=== PATIENT | male | born 1945 | race Caucasian/White ===

== ENCOUNTER 2020-03-05 20:11 | Observation (INO) ==
[2020-03-05] MEDS ORDERED: Nitroglycerin 0.4 MG TAB.SUBL SL PRN (20:16)
[2020-03-05] MEDS ORDERED: Aspirin 81 MG TAB.CHEW PO ONE (20:16)
[2020-03-05 20:43] LABS: Basophils # 0.1 K/mcL (0.0-0.2); Basophils % 0.9 %; Eosinophils % 11.3 %; Hematocrit 41.1 % (37.5-50.1); Hemoglobin 13.4 g/dL (12.9-16.9); Immature Granulocytes % 0.6 % (0-4); Lymphocytes # 2.1 K/mcL (0.6-4.6); Lymphocytes % 23.2 %; Mean Corpuscular HGB Conc 32.6 g/dL (31.6-35.5); Mean Corpuscular Hemoglobin 27.5 pg (28.0-33.3); Mean Corpuscular Volume 84.2 fL (83.0-100.0); Monocytes # 0.5 K/mcL (0.0-1.3); Monocytes % 5.7 %; Neutrophils # 5.2 K/mcL (1.6-8.9); Platelet Count 144 K/mcL (140-400); Red Blood Count 4.88 M/mcL (4.19-5.50); Red Cell Distribution Width 13.1 % (11.5-14.5); Segmented Neutrophils % 58.3 %
[2020-03-05 20:49] LABS: Prothrombin Time 11.4 Seconds (9.4-12.1)
[2020-03-05 20:51] LABS: Activated Partial Thrombo Time 27.2 Seconds (26.0-36.0)
[2020-03-05 21:04] LABS: BUN/Creatinine Ratio 15 (6-26); Blood Urea Nitrogen 19 mg/dL (8-23); Calcium 9.1 mg/dL (8.6-10.3); Carbon Dioxide 24 mEq/L (23-29); Chloride 102 mEq/L (98-107); Glucose 257 mg/dL (70-105); Osmolality,Calculated 289 (280-300); Sodium 134 mEq/L (136-145); eGFR For African Americans > 60 (> 60); eGFR For Non-African Americans 55 (> 60)
[2020-03-05 21:05] LABS: Troponin I < 0.03 ng/mL (< 0.04)
[2020-03-05 21:27] LABS: Bilirubin,Urine Negative (Negative); Blood,Urine Negative (Negative); Clarity,Urine Clear (Clear); Color,Urine Light-Yellow (Yellow); Glucose,Urine (UA) 500 mg/dL (Normal); Ketones,Urine Negative (Negative); Leukocyte Esterase,Urine Negative (Negative); Nitrite,Urine Negative (Negative); PH,Urine 6.5 pH Units (5.0-8.0); Protein,Urine Negative (Neg-Trace); RBC,Urine 0-3 per hpf (0-3); Urobilinogen,Urine Normal (Normal); WBC,Urine 0-3 per hpf (0-3)
[2020-03-05] MEDS ORDERED: Naloxone 0.4 MG/ML INJ IVP PRN (23:02)
[2020-03-05] MEDS ORDERED: Ondansetron 4 MG/2 ML VIAL IVP PRN (23:02)
[2020-03-05] MEDS ORDERED: Acetaminophen 325 MG TABLET PO PRN (23:02)
[2020-03-05] MEDS ORDERED: Dextrose Gel 15 GM/37.5 ML TUBE PO PRN ×2 (23:06)
[2020-03-05] MEDS ORDERED: *HR* Dextrose 50 % in Water (Vial) 50 ML VIAL IVP PRN (23:06)
[2020-03-05] MEDS ORDERED: D5% in Water 1,000 ML IVC PRN (23:06)
[2020-03-05] MEDS ORDERED: Melatonin 3 MG TABLET PO SCH (23:15)
[2020-03-05] MEDS ORDERED: traZODone 50 MG TABLET PO SCH (23:15)
[2020-03-05] MEDS: Insulin LISPRO 300 UNITS/3 ML VIAL SQ SCH (23:43)
[2020-03-06 05:40] LABS: Hematocrit 38.9 % (37.5-50.1); Hemoglobin 12.9 g/dL (12.9-16.9); Mean Corpuscular HGB Conc 33.2 g/dL (31.6-35.5); Mean Corpuscular Hemoglobin 27.5 pg (28.0-33.3); Mean Corpuscular Volume 82.9 fL (83.0-100.0); Mean Platelet Volume 10.2 fL (9.4-12.4); Platelet Count 148 K/mcL (140-400); Red Blood Count 4.69 M/mcL (4.19-5.50); Red Cell Distribution Width 13.1 % (11.5-14.5); White Blood Count 9.1 K/mcL (4.3-11.1)
[2020-03-06 05:54] LABS: BUN/Creatinine Ratio 15 (6-26); Blood Urea Nitrogen 18 mg/dL (8-23); Calcium 9.2 mg/dL (8.6-10.3); Carbon Dioxide 26 mEq/L (23-29); Chloride 106 mEq/L (98-107); Glucose 111 mg/dL (70-105); Osmolality,Calculated 291 (280-300); Potassium 3.9 mEq/L (3.5-5.1); Sodium 139 mEq/L (136-145); Troponin I < 0.03 ng/mL (< 0.04); eGFR For African Americans > 60 (> 60); eGFR For Non-African Americans 60 (> 60)
[2020-03-06] MEDS: Insulin LISPRO 300 UNITS/3 ML VIAL SQ SCH ×3 (06:14→17:23)
[2020-03-06] MEDS: *HR* Heparin 5,000 UNIT/ML VIAL SQ SCH ×2 (06:28→18:26)
[2020-03-06] MEDS ORDERED: Regadenoson 0.4 MG/5 ML SYRINGE IVP ONE (07:40)
[2020-03-06] MEDS ORDERED: Perflutren Lipid Microsphere 1.3 ML in 0.9 % Sodium Chloride 8.7 ML IVP PRN (07:46)
[2020-03-06] MEDS: Aspirin Enteric Coated 81 MG Tablet PO SCH (09:31)
[2020-03-06] MEDS ORDERED: Fluticasone Propionate Nasal 50 MCG/SPRAY BOTTLE NS PRN (14:58)
[2020-03-06] MEDS: IPRATROPIUM BROMIDE NS SCH ×2 (16:17→20:25)
[2020-03-06] MEDS: Pregabalin 25 MG CAPSULE PO SCH (20:25)
[2020-03-06] MEDS ORDERED: Insulin DETEMIR 100 UNIT/ML X5UNITS SQ SCH (21:00)
[2020-03-06] MEDS ORDERED: Insulin DETEMIR 100 UNIT/ML X5UNITS SQ ONE (22:28)
[2020-03-07] MEDS: Insulin LISPRO 300 UNITS/3 ML VIAL SQ SCH ×2 (00:18→05:34)
[2020-03-07] MEDS: *HR* Heparin 5,000 UNIT/ML VIAL SQ SCH (05:05)
[2020-03-07] MEDS ORDERED: Regadenoson 0.4 MG/5 ML SYRINGE IVP ONE (06:17)
[2020-03-07 06:41] VITALS: BP 161/83
[2020-03-07] MEDS: Pregabalin 25 MG CAPSULE PO SCH (08:55)
[2020-03-07] MEDS: Aspirin Enteric Coated 81 MG Tablet PO SCH (08:55)
[2020-03-07] MEDS: IPRATROPIUM BROMIDE NS SCH (08:56)
[2020-03-07] MEDS ORDERED: Metoprolol XL (24 HR) Succ 50 MG TAB.ER.24H PO SCH (09:00)
[2020-03-07] MEDS ORDERED: amLODIPine 5 MG TABLET PO SCH (09:00)
[2020-03-07] MEDS ORDERED: allopurinoL 300 MG TABLET PO SCH (09:00)
[2020-03-07] MEDS ORDERED: Finasteride 5 MG TABLET PO SCH (09:00)
[2020-03-07] MEDS ORDERED: Cholecalciferol (D-3) 1,000 UNIT (25MCG) TABLET PO SCH (09:00)
[2020-03-07] MEDS ORDERED: Isosorbide MONOnitrate (24 HR) 30 MG TAB.ER.24H PO SCH (09:00)
[2020-03-07] MEDS ORDERED: Loratadine 10 MG TABLET PO SCH (09:00)
== END 2020-03-07 12:33 | disposition home or self-care (01) ==
LOC: 3BNU 20:11 → EMEROOARM 20:11 → 3BNU 22:03
PROVIDERS: ADMIT Internal Medicine; ATTEND Internal Medicine

== ENCOUNTER 2020-12-17 11:55 | Observation (INO) ==
[2020-12-17] MEDS ORDERED: 0.9 % Sodium Chloride 500 ML IVC ONE (12:13)
[2020-12-17 12:43] LABS: Basophils # 0.1 K/mcL (0.0-0.2); Bilirubin,Urine Negative (Negative); Blood,Urine Moderate (Negative); Clarity,Urine Clear (Clear); Color,Urine Light-Yellow (Yellow); Eosinophils # 0.1 K/mcL (0.0-0.6); Eosinophils % 1.4 %; Glucose,Urine (UA) 30 mg/dL (Normal); Hematocrit 41.7 % (37.5-50.1); Hemoglobin 13.6 g/dL (12.9-16.9); Immature Granulocytes % 0.4 % (0-4); Ketones,Urine Trace mg/dL (Negative); Leukocyte Esterase,Urine Negative (Negative); Lymphocytes # 0.8 K/mcL (0.6-4.6); Lymphocytes % 16.5 %; Mean Corpuscular HGB Conc 32.6 g/dL (31.6-35.5); Mean Corpuscular Hemoglobin 27.4 pg (28.0-33.3); Mean Corpuscular Volume 84.1 fL (83.0-100.0); Mean Platelet Volume 10.4 fL (9.4-12.4); Monocytes # 0.7 K/mcL (0.0-1.3); Monocytes % 13.5 %; Mucus,Urine Few per lpf (None-Few); Neutrophils # 3.3 K/mcL (1.6-8.9); Nitrite,Urine Negative (Negative); PH,Urine 6.5 pH Units (5.0-8.0); Platelet Count 135 K/mcL (140-400); Protein,Urine 50 mg/dL (Neg-Trace); RBC,Urine 0-3 per hpf (0-3); Red Blood Count 4.96 M/mcL (4.19-5.50); Red Cell Distribution Width 12.9 % (11.5-14.5); Segmented Neutrophils % 67.2 %; Specific Gravity,Urine 1.018 (1.010-1.025); Squamous Epithelial Cell,Urine Few per hpf (None-Few); Urobilinogen,Urine Normal (Normal); WBC,Urine 0-3 per hpf (0-3); White Blood Count 4.9 K/mcL (4.3-11.1)
[2020-12-17 13:06] LABS: Albumin 3.9 g/dL (3.5-5.7); Albumin/Globulin Ratio 1.3 (1.1-2.2); Bilirubin,Total 0.9 mg/dL (0.3-1.0); Calcium 9.6 mg/dL (8.6-10.3); Globulin 3.1 g/dL (2.4-3.5); Potassium 4.1 mEq/L (3.5-5.1)
[2020-12-17 13:14] LABS: Troponin I 0.03 ng/mL (< 0.04)
[2020-12-17 14:01] LABS: Adenovirus Not Detected (Not Detect); Bordetella Pertussis Not Detected (Not Detect); Chlamydophila pneumoniae Not Detected (Not Detect); Coronavirus 229E Not Detected (Not Detect); Coronavirus HKU1 Not Detected (Not Detect); Coronavirus NL63 Not Detected (Not Detect); Coronavirus OC43 Not Detected (Not Detect); Human Metapneumovirus Not Detected (Not Detect); Human Rhinovirus/Enterovirus Not Detected (Not Detect); Influenza A Subtype 2009 H1 Not Detected (Not Detect); Influenza B Not Detected (Not Detect); Mycoplasma pneumoniae Not Detected (Not Detect); Parainfluenza Virus 1 Not Detected (Not Detect); Parainfluenza Virus 2 Not Detected (Not Detect); Parainfluenza Virus 3 Not Detected (Not Detect); Parainfluenza Virus 4 Not Detected (Not Detect); Respiratory Syncytial Virus Not Detected (Not Detect)
[2020-12-17 14:03] LABS: SARS-CoV-2 DETECTED (Not Detect)
[2020-12-17] MEDS ORDERED: Naloxone 0.4 MG/ML INJ IVP PRN (14:42)
[2020-12-17] MEDS ORDERED: Ondansetron 4 MG/2 ML VIAL IVP PRN (14:42)
[2020-12-17] MEDS ORDERED: 0.9 % Sodium Chloride 1,000 ML IVC SCH (14:45)
[2020-12-17] MEDS ORDERED: Dextrose Gel 15 GM/37.5 ML TUBE PO PRN ×2 (15:10)
[2020-12-17] MEDS ORDERED: *HR* Dextrose 50 % in Water (Vial) 50 ML VIAL IVP PRN (15:10)
[2020-12-17] MEDS ORDERED: D5% in Water 1,000 ML IVC PRN (15:10)
[2020-12-17] MEDS ORDERED: Insulin LISPRO 300 UNITS/3 ML VIAL SUBQ SCH (16:30)
[2020-12-17] MEDS: Insulin LISPRO 300 UNITS/3 ML VIAL SUBQ SCH (17:37)
[2020-12-17] MEDS: Insulin DETEMIR 100 UNIT/ML X5UNITS SUBQ SCH (22:05)
[2020-12-18] MEDS: Insulin LISPRO 300 UNITS/3 ML VIAL SUBQ SCH ×3 (10:45→17:28)
[2020-12-18 11:11] LABS: BUN/Creatinine Ratio 11 (6-26); Blood Urea Nitrogen 14 mg/dL (8-23); Calcium 8.8 mg/dL (8.6-10.3); Carbon Dioxide 25 mEq/L (23-29); Chloride 99 mEq/L (98-107); Creatine Kinase 1831 Units/L (30-223); Glucose 197 mg/dL (70-105); Osmolality,Calculated 278 (280-300); Sodium 131 mEq/L (136-145); eGFR For African Americans > 60 (> 60); eGFR For Non-African Americans 57 (> 60)
[2020-12-18 11:27] LABS: Ferritin 394 ng/mL (20-250)
[2020-12-18 11:46] LABS: C-Reactive Protein 51 mg/L (Less than 10)
[2020-12-18 13:31] LABS: Basophils % 0.7 %; Eosinophils # 0.1 K/mcL (0.0-0.6); Eosinophils % 1.4 %; Hematocrit 40.3 % (37.5-50.1); Hemoglobin 13.4 g/dL (12.9-16.9); Immature Granulocytes % 0.2 % (0-4); Lymphocytes # 0.9 K/mcL (0.6-4.6); Lymphocytes % 21.8 %; Mean Corpuscular HGB Conc 33.3 g/dL (31.6-35.5); Mean Corpuscular Hemoglobin 27.8 pg (28.0-33.3); Mean Corpuscular Volume 83.6 fL (83.0-100.0); Mean Platelet Volume 10.7 fL (9.4-12.4); Monocytes # 0.5 K/mcL (0.0-1.3); Monocytes % 12.2 %; Neutrophils # 2.7 K/mcL (1.6-8.9); Platelet Count 117 K/mcL (140-400); Red Blood Count 4.82 M/mcL (4.19-5.50); Red Cell Distribution Width 12.9 % (11.5-14.5); Segmented Neutrophils % 63.7 %; White Blood Count 4.3 K/mcL (4.3-11.1)
[2020-12-18] MEDS: Metoprolol XL (24 HR) Succ 50 MG TAB.ER.24H PO SCH (17:27)
[2020-12-18] MEDS: amLODIPine 5 MG TABLET PO SCH (17:27)
[2020-12-18] MEDS: Finasteride 5 MG TABLET PO SCH (17:28)
[2020-12-18] MEDS: Aspirin Enteric Coated 81 MG Tablet PO SCH (17:28)
[2020-12-18] MEDS: *HR* Enoxaparin 40 MG/0.4 ML SYRINGE SQ SCH (17:28)
[2020-12-18] MEDS: Loratadine 10 MG TABLET PO SCH (17:28)
[2020-12-18] MEDS: allopurinoL 300 MG TABLET PO SCH (17:28)
[2020-12-18] MEDS ORDERED: traZODone 50 MG TABLET PO SCH (21:00)
[2020-12-18] MEDS ORDERED: Acetaminophen IV 1,000 MG/100 ML BAG IVPB ONE (21:52)
[2020-12-18] MEDS: Insulin DETEMIR 100 UNIT/ML X5UNITS SUBQ SCH (21:55)
[2020-12-18] MEDS: Pregabalin 25 MG CAPSULE PO SCH (21:56)
[2020-12-19] MEDS: amLODIPine 5 MG TABLET PO SCH (10:09)
[2020-12-19] MEDS: allopurinoL 300 MG TABLET PO SCH (10:09)
[2020-12-19] MEDS: Aspirin Enteric Coated 81 MG Tablet PO SCH (10:10)
[2020-12-19] MEDS: Finasteride 5 MG TABLET PO SCH (10:10)
[2020-12-19] MEDS: Metoprolol XL (24 HR) Succ 50 MG TAB.ER.24H PO SCH (10:10)
[2020-12-19] MEDS: Loratadine 10 MG TABLET PO SCH (10:10)
[2020-12-19] MEDS: Pregabalin 25 MG CAPSULE PO SCH (10:10)
[2020-12-19] MEDS: *HR* Enoxaparin 40 MG/0.4 ML SYRINGE SQ SCH (10:11)
[2020-12-19] MEDS: Insulin LISPRO 300 UNITS/3 ML VIAL SUBQ SCH ×2 (10:11→13:41)
[2020-12-19 11:33] VITALS: BP 124/61; PULSE 67; TEMP 99.2; O2SAT 94
[2020-12-19] MEDS ORDERED: Insulin DETEMIR 100 UNIT/ML X5UNITS SUBQ SCH (21:00)
== END 2020-12-19 14:29 | disposition home health service (06) ==
LOC: 3ANU 11:55 → EMEROOARM 11:55 → SUATTDRO 14:52 → 3ANU 16:30
PROVIDERS: ADMIT Internal Medicine; ATTEND Internal Medicine

== ENCOUNTER 2020-12-21 13:24 | Inpatient (IN) ==
[2020-12-21] MEDS ORDERED: 0.9 % Sodium Chloride 1,000 ML IVC ONE (13:49)
[2020-12-21 14:26] LABS: Hematocrit 37.1 % (37.5-50.1); Hemoglobin 12.2 g/dL (12.9-16.9); Mean Corpuscular HGB Conc 32.9 g/dL (31.6-35.5); Mean Corpuscular Hemoglobin 27.5 pg (28.0-33.3); Mean Corpuscular Volume 83.6 fL (83.0-100.0); Mean Platelet Volume 10.9 fL (9.4-12.4); Red Blood Count 4.44 M/mcL (4.19-5.50); Red Cell Distribution Width 12.8 % (11.5-14.5); White Blood Count 3.1 K/mcL (4.3-11.1)
[2020-12-21 14:34] LABS: Prothrombin Time 11.6 Seconds (9.4-12.1)
[2020-12-21 14:37] LABS: Activated Partial Thrombo Time 28.7 Seconds (26.0-36.0)
[2020-12-21 14:41] LABS: Albumin 3.2 g/dL (3.5-5.7); Albumin/Globulin Ratio 1.1 (1.1-2.2); Bilirubin,Direct 0.3 mg/dL (0.0-0.2); Bilirubin,Indirect 0.7 mg/dL (0.0-1.0); Calcium 8.5 mg/dL (8.6-10.3); Globulin 2.9 g/dL (2.4-3.5); Magnesium 1.6 mg/dL (1.6-2.6); Phosphorous 3.1 mg/dL (2.7-4.5); Potassium 4.3 mEq/L (3.5-5.1); Total Protein 6.1 g/dL (6.4-8.9); Troponin I 0.03 ng/mL (< 0.04)
[2020-12-21 15:47] LABS: Platelet Count 85 K/mcL (140-400)
[2020-12-21 16:07] LABS: Lymphocytes # 0.3 K/mcL (0.6-4.6); Monocytes # 0.1 K/mcL (0.0-1.3); Neutrophils # 2.7 K/mcL (1.6-8.9); Reactive Lymphocytes Present (Not Present)
[2020-12-21 16:08] LABS: Platelet Estimate Slight Decrease (Normal)
[2020-12-21] MEDS ORDERED: Dextrose Gel 15 GM/37.5 ML TUBE PO PRN ×2 (16:56)
[2020-12-21] MEDS ORDERED: Naloxone 0.4 MG/ML INJ IVP PRN (16:56)
[2020-12-21] MEDS ORDERED: *HR* Dextrose 50 % in Water (Vial) 50 ML VIAL IVP PRN (16:56)
[2020-12-21] MEDS ORDERED: D5% in Water 1,000 ML IVC PRN (16:56)
[2020-12-21] MEDS ORDERED: Benzonatate 100 MG CAPSULE PO PRN (17:19)
[2020-12-21] MEDS ORDERED: Remdesivir 200 MG in 0.9 % Sodium Chloride 100 ML IVPB ONE (17:56)
[2020-12-21 19:30] LABS: Basophils % 0.3 %; Hemoglobin 11.7 g/dL (12.9-16.9)
[2020-12-21 19:32] LABS: Hematocrit 35.6 % (37.5-50.1); Immature Granulocytes % 0.3 % (0-4); Immature Platelets 5.8 % (1.1-6.1); Lymphocytes # 0.6 K/mcL (0.6-4.6); Lymphocytes % 15.5 %; Mean Corpuscular HGB Conc 32.9 g/dL (31.6-35.5); Mean Corpuscular Hemoglobin 27.6 pg (28.0-33.3); Mean Platelet Volume 10.9 fL (9.4-12.4); Monocytes # 0.2 K/mcL (0.0-1.3); Neutrophils # 3.2 K/mcL (1.6-8.9); Red Blood Count 4.24 M/mcL (4.19-5.50); Red Cell Distribution Width 12.9 % (11.5-14.5); Segmented Neutrophils % 78.9 %
[2020-12-21 20:06] LABS: Troponin I 0.03 ng/mL (< 0.04)
[2020-12-21 20:30] LABS: Platelet Count 88 K/mcL (140-400)
[2020-12-21 20:32] LABS: Platelet Estimate Marked Decrease (Normal)
[2020-12-21 20:40] LABS: Estimated Average Glucose 197 mg/dl; Hemoglobin A1C 8.5 %
[2020-12-21 20:42] LABS: Calcium 8.1 mg/dL (8.6-10.3); Potassium 4.7 mEq/L (3.5-5.1)
[2020-12-21] MEDS ORDERED: 0.9 % Sodium Chloride 1,000 ML IVC SCH (21:00)
[2020-12-21 21:30] LABS: Bilirubin,Urine Negative (Negative); Blood,Urine Negative (Negative); Clarity,Urine Clear (Clear); Color,Urine Yellow (Yellow); Glucose,Urine (UA) Normal (Normal); Hyaline Casts,Urine Few per lpf (None Seen); Ketones,Urine Negative (Negative); Leukocyte Esterase,Urine Negative (Negative); Nitrite,Urine Negative (Negative); PH,Urine 5.5 pH Units (5.0-8.0); Protein,Urine 30 mg/dL (Neg-Trace); RBC,Urine 0-3 per hpf (0-3); Specific Gravity,Urine 1.019 (1.010-1.025); Squamous Epithelial Cell,Urine Few per hpf (None-Few); Urobilinogen,Urine Normal (Normal); WBC,Urine 0-3 per hpf (0-3)
[2020-12-21] MEDS: Insulin LISPRO 300 UNITS/3 ML VIAL SUBQ SCH (21:31)
[2020-12-21] MEDS: Ipratropium 1 PUFF INHALER IH SCH (21:34)
[2020-12-21] MEDS: Azithromycin 250 MG TABLET PO SCH (21:48)
[2020-12-21] MEDS: Piperacillin/Tazobactam 3.375 GM in 0.9 % Sodium Chloride Mini Bag 100 ML IVPB SCH (21:49)
[2020-12-22] MEDS: Ipratropium 1 PUFF INHALER IH SCH ×6 (00:35→20:34)
[2020-12-22] MEDS: Piperacillin/Tazobactam 3.375 GM in 0.9 % Sodium Chloride Mini Bag 100 ML IVPB SCH ×3 (05:23→22:01)
[2020-12-22] MEDS: *HR* Enoxaparin 40 MG/0.4 ML SYRINGE SQ SCH (05:24)
[2020-12-22 06:11] LABS: Immature Granulocytes % 0.6 % (0-4); Monocytes % 3.4 %
[2020-12-22 06:13] LABS: Basophils % 0.3 %; Hematocrit 34.8 % (37.5-50.1); Hemoglobin 11.9 g/dL (12.9-16.9); Immature Platelets 5.2 % (1.1-6.1); Lymphocytes # 0.4 K/mcL (0.6-4.6); Lymphocytes % 11.7 %; Mean Corpuscular HGB Conc 34.2 g/dL (31.6-35.5); Mean Corpuscular Hemoglobin 28.5 pg (28.0-33.3); Mean Corpuscular Volume 83.3 fL (83.0-100.0); Mean Platelet Volume 11.2 fL (9.4-12.4); Monocytes # 0.1 K/mcL (0.0-1.3); Red Blood Count 4.18 M/mcL (4.19-5.50); White Blood Count 3.5 K/mcL (4.3-11.1)
[2020-12-22 06:15] LABS: Neutrophils # 2.9 K/mcL (1.6-8.9); Platelet Count 86 K/mcL (140-400)
[2020-12-22 06:30] LABS: Albumin 3.1 g/dL (3.5-5.7); Albumin/Globulin Ratio 1.2 (1.1-2.2); Bilirubin,Direct 0.2 mg/dL (0.0-0.2); Bilirubin,Indirect 0.6 mg/dL (0.0-1.0); Bilirubin,Total 0.8 mg/dL (0.3-1.0); Globulin 2.6 g/dL (2.4-3.5); Potassium 4.8 mEq/L (3.5-5.1); Total Protein 5.7 g/dL (6.4-8.9)
[2020-12-22] MEDS: Chlorhexidine Rinse 15 ML MOUTHWASH MM SCH ×2 (09:06→21:58)
[2020-12-22] MEDS: Cholecalciferol (D-3) 1,000 UNIT (25MCG) TABLET PO SCH (09:07)
[2020-12-22] MEDS: Insulin LISPRO 300 UNITS/3 ML VIAL SUBQ SCH ×3 (09:13→17:58)
[2020-12-22] MEDS ORDERED: Fluticasone Propionate Nasal 50 MCG/SPRAY BOTTLE NS PRN (16:25)
[2020-12-22] MEDS ORDERED: Nitroglycerin 0.4 MG TAB.SUBL SL PRN (16:25)
[2020-12-22] MEDS ORDERED: Chloraseptic Spray 177 ML BOTTLE MM PRN (16:27)
[2020-12-22] MEDS ORDERED: Saliva Stimulant 44.3ml BOTTLE PO PRN (16:27)
[2020-12-22] MEDS: Acetaminophen 325 MG TABLET PO PRN (17:12)
[2020-12-22] MEDS: Saline Nasal Spray 44 ML BOTTLE NS SCH ×2 (18:00→21:58)
[2020-12-22] MEDS: Artificial Tears SOLN 15 ML BOTTLE BOTH EYES SCH (18:02)
[2020-12-22] MEDS ORDERED: Insulin DETEMIR 100 UNIT/ML X5UNITS SUBQ SCH (21:00)
[2020-12-22] MEDS: Remdesivir 100 MG in 0.9 % Sodium Chloride 100 ML IVPB SCH (21:55)
[2020-12-22] MEDS: Lactobacillus 1 EACH CAP.SPRINK PO SCH (21:58)
[2020-12-22] MEDS: Pregabalin 25 MG CAPSULE PO SCH (21:59)
[2020-12-22] MEDS: Melatonin 3 MG TABLET PO SCH (21:59)
[2020-12-22] MEDS: traZODone 50 MG TABLET PO SCH (22:00)
[2020-12-22] MEDS: Azithromycin 250 MG TABLET PO SCH (22:00)
[2020-12-23] MEDS: Ipratropium 1 PUFF INHALER IH SCH ×7 (00:35→23:53)
[2020-12-23] MEDS: Insulin LISPRO 300 UNITS/3 ML VIAL SUBQ SCH ×8 (01:15→22:13)
[2020-12-23] MEDS: Saline Nasal Spray 44 ML BOTTLE NS SCH ×6 (01:32→21:10)
[2020-12-23] MEDS: Piperacillin/Tazobactam 3.375 GM in 0.9 % Sodium Chloride Mini Bag 100 ML IVPB SCH ×3 (06:36→22:14)
[2020-12-23] MEDS: *HR* Enoxaparin 40 MG/0.4 ML SYRINGE SQ SCH (06:36)
[2020-12-23] MEDS: amLODIPine 5 MG TABLET PO SCH (08:08)
[2020-12-23] MEDS: Isosorbide MONOnitrate (24 HR) 30 MG TAB.ER.24H PO SCH (08:09)
[2020-12-23] MEDS: Metoprolol XL (24 HR) Succ 50 MG TAB.ER.24H PO SCH (08:09)
[2020-12-23] MEDS: Multivit/Ca/Min/Fe/FA 1 TAB TABLET PO SCH (08:09)
[2020-12-23] MEDS: Finasteride 5 MG TABLET PO SCH (08:09)
[2020-12-23] MEDS: Cholecalciferol (D-3) 1,000 UNIT (25MCG) TABLET PO SCH (08:10)
[2020-12-23] MEDS: Pregabalin 25 MG CAPSULE PO SCH ×2 (08:10→21:06)
[2020-12-23] MEDS: Aspirin Enteric Coated 81 MG Tablet PO SCH (08:10)
[2020-12-23] MEDS: Chlorhexidine Rinse 15 ML MOUTHWASH MM SCH ×2 (08:10→21:10)
[2020-12-23] MEDS: Lactobacillus 1 EACH CAP.SPRINK PO SCH ×2 (08:10→21:06)
[2020-12-23] MEDS: Loratadine 10 MG TABLET PO SCH (08:10)
[2020-12-23 08:12] LABS: Alanine Aminotransferase 16 Units/L (7-52); Albumin/Globulin Ratio 1.2 (1.1-2.2); Alkaline Phosphatase 67 Units/L (34-104); Aspartate Amino Transferase 25 Units/L (13-39); Bilirubin,Total 0.6 mg/dL (0.3-1.0); Blood Urea Nitrogen 28 mg/dL (8-23); Calcium 8.5 mg/dL (8.6-10.3); Carbon Dioxide 23 mEq/L (23-29); Chloride 101 mEq/L (98-107); Globulin 2.6 g/dL (2.4-3.5); Glucose 407 mg/dL (70-105); Lactate Dehydrogenase 236 Units/L (140-271); Osmolality,Calculated 299 (280-300); Phosphorous 2.8 mg/dL (2.7-4.5); Potassium 4.8 mEq/L (3.5-5.1); Sodium 133 mEq/L (136-145); Total Protein 5.6 g/dL (6.4-8.9)
[2020-12-23 08:20] LABS: Ferritin 978 ng/mL (20-250)
[2020-12-23 08:29] LABS: Basophils % 0.1 %; Hematocrit 37.4 % (37.5-50.1); Hemoglobin 12.3 g/dL (12.9-16.9); Immature Granulocytes % 0.7 % (0-4); Lymphocytes # 0.6 K/mcL (0.6-4.6); Mean Corpuscular HGB Conc 32.9 g/dL (31.6-35.5); Mean Corpuscular Hemoglobin 27.3 pg (28.0-33.3); Mean Corpuscular Volume 82.9 fL (83.0-100.0); Mean Platelet Volume 10.5 fL (9.4-12.4); Monocytes # 0.3 K/mcL (0.0-1.3); Monocytes % 3.8 %; Neutrophils # 6.3 K/mcL (1.6-8.9); Platelet Count 119 K/mcL (140-400); Red Blood Count 4.51 M/mcL (4.19-5.50); Segmented Neutrophils % 87.4 %
[2020-12-23 08:31] LABS: White Blood Count 7.2 K/mcL (4.3-11.1)
[2020-12-23 08:40] LABS: BUN/Creatinine Ratio 20 (6-26); C-Reactive Protein 134 mg/L (Less than 10); eGFR For African Americans > 60 (> 60); eGFR For Non-African Americans 51 (> 60)
[2020-12-23] MEDS ORDERED: Cholecalciferol (D-3) 1,000 UNIT (25MCG) TABLET PO SCH (09:00)
[2020-12-23] MEDS ORDERED: Calcium Gluconate 1gm/50mL 1 GM/50 ML BAG IVPB SCH (13:00)
[2020-12-23] MEDS: Artificial Tears SOLN 15 ML BOTTLE BOTH EYES SCH ×2 (13:31→21:11)
[2020-12-23] MEDS: Furosemide 20 MG/2 ML VIAL IVP SCH (14:25)
[2020-12-23] MEDS ORDERED: Insulin DETEMIR 100 UNIT/ML X5UNITS SUBQ ONE (14:27)
[2020-12-23] MEDS: Remdesivir 100 MG in 0.9 % Sodium Chloride 100 ML IVPB SCH (21:00)
[2020-12-23] MEDS: traZODone 50 MG TABLET PO SCH (21:06)
[2020-12-23] MEDS: Azithromycin 250 MG TABLET PO SCH (21:06)
[2020-12-23] MEDS: Sennosides/Docusate Sodium TABLET PO SCH (21:06)
[2020-12-23] MEDS: Melatonin 3 MG TABLET PO SCH (21:06)
[2020-12-23] MEDS: Insulin DETEMIR 100 UNIT/ML X5UNITS SUBQ SCH (22:15)
[2020-12-24] MEDS: Saline Nasal Spray 44 ML BOTTLE NS SCH ×6 (00:38→20:07)
[2020-12-24] MEDS: Ipratropium 1 PUFF INHALER IH SCH ×6 (03:02→23:10)
[2020-12-24] MEDS: Piperacillin/Tazobactam 3.375 GM in 0.9 % Sodium Chloride Mini Bag 100 ML IVPB SCH ×3 (05:33→22:50)
[2020-12-24] MEDS: *HR* Enoxaparin 40 MG/0.4 ML SYRINGE SQ SCH (05:34)
[2020-12-24 06:57] LABS: Basophils % 0.1 %; Hemoglobin 12.4 g/dL (12.9-16.9); Immature Granulocytes % 1.1 % (0-4); Immature Platelets 3.9 % (1.1-6.1); Lymphocytes # 0.7 K/mcL (0.6-4.6); Lymphocytes % 7.5 %; Mean Corpuscular HGB Conc 33.5 g/dL (31.6-35.5); Mean Corpuscular Hemoglobin 27.9 pg (28.0-33.3); Mean Corpuscular Volume 83.1 fL (83.0-100.0); Mean Platelet Volume 10.7 fL (9.4-12.4); Monocytes # 0.5 K/mcL (0.0-1.3); Neutrophils # 7.8 K/mcL (1.6-8.9); Platelet Count 149 K/mcL (140-400); Red Blood Count 4.45 M/mcL (4.19-5.50); Segmented Neutrophils % 86.3 %
[2020-12-24 07:18] LABS: Alanine Aminotransferase 15 Units/L (7-52); Albumin/Globulin Ratio 1.1 (1.1-2.2); Alkaline Phosphatase 65 Units/L (34-104); Aspartate Amino Transferase 23 Units/L (13-39); BUN/Creatinine Ratio 25 (6-26); Bilirubin,Total 0.6 mg/dL (0.3-1.0); Blood Urea Nitrogen 32 mg/dL (8-23); Calcium 8.9 mg/dL (8.6-10.3); Carbon Dioxide 26 mEq/L (23-29); Chloride 102 mEq/L (98-107); Globulin 2.7 g/dL (2.4-3.5); Glucose 215 mg/dL (70-105); Lactate Dehydrogenase 246 Units/L (140-271); Osmolality,Calculated 293 (280-300); Phosphorous 2.9 mg/dL (2.7-4.5); Potassium 4.1 mEq/L (3.5-5.1); Sodium 135 mEq/L (136-145); Total Protein 5.7 g/dL (6.4-8.9); eGFR For African Americans > 60 (> 60); eGFR For Non-African Americans 54 (> 60)
[2020-12-24 07:33] LABS: Ferritin 862 ng/mL (20-250)
[2020-12-24] MEDS: Artificial Tears SOLN 15 ML BOTTLE BOTH EYES SCH ×2 (08:03→20:07)
[2020-12-24] MEDS: Chlorhexidine Rinse 15 ML MOUTHWASH MM SCH ×2 (08:03→19:56)
[2020-12-24] MEDS: Insulin LISPRO 300 UNITS/3 ML VIAL SUBQ SCH ×7 (08:03→21:12)
[2020-12-24] MEDS: Aspirin Enteric Coated 81 MG Tablet PO SCH (08:03)
[2020-12-24] MEDS: Insulin DETEMIR 100 UNIT/ML X5UNITS SUBQ SCH ×2 (08:04→21:11)
[2020-12-24] MEDS: Multivit/Ca/Min/Fe/FA 1 TAB TABLET PO SCH (08:04)
[2020-12-24] MEDS: Furosemide 20 MG/2 ML VIAL IVP SCH (08:04)
[2020-12-24] MEDS: Finasteride 5 MG TABLET PO SCH (08:04)
[2020-12-24] MEDS: Sennosides/Docusate Sodium TABLET PO SCH ×2 (08:04→19:51)
[2020-12-24] MEDS: Loratadine 10 MG TABLET PO SCH (08:04)
[2020-12-24] MEDS: Lactobacillus 1 EACH CAP.SPRINK PO SCH ×2 (08:04→19:53)
[2020-12-24] MEDS: amLODIPine 5 MG TABLET PO SCH (08:04)
[2020-12-24] MEDS: Isosorbide MONOnitrate (24 HR) 30 MG TAB.ER.24H PO SCH (08:04)
[2020-12-24] MEDS: Pregabalin 25 MG CAPSULE PO SCH ×2 (08:04→19:53)
[2020-12-24] MEDS: Cholecalciferol (D-3) 1,000 UNIT (25MCG) TABLET PO SCH (08:05)
[2020-12-24] MEDS: Metoprolol XL (24 HR) Succ 50 MG TAB.ER.24H PO SCH (08:05)
[2020-12-24 10:17] LABS: C-Reactive Protein 77 mg/L (Less than 10)
[2020-12-24] MEDS: Remdesivir 100 MG in 0.9 % Sodium Chloride 100 ML IVPB SCH (17:08)
[2020-12-24] MEDS: Azithromycin 250 MG TABLET PO SCH (19:51)
[2020-12-24] MEDS: Melatonin 3 MG TABLET PO SCH (19:54)
[2020-12-24] MEDS: traZODone 50 MG TABLET PO SCH (19:56)
[2020-12-25 01:26] LABS: Basophils % 0.3 %; Hematocrit 38.9 % (37.5-50.1); Hemoglobin 12.8 g/dL (12.9-16.9); Immature Granulocytes % 1.1 % (0-4); Lymphocytes # 0.7 K/mcL (0.6-4.6); Lymphocytes % 8.3 %; Mean Corpuscular HGB Conc 32.9 g/dL (31.6-35.5); Mean Corpuscular Hemoglobin 27.2 pg (28.0-33.3); Mean Corpuscular Volume 82.8 fL (83.0-100.0); Mean Platelet Volume 10.3 fL (9.4-12.4); Monocytes # 0.5 K/mcL (0.0-1.3); Monocytes % 5.7 %; Neutrophils # 6.7 K/mcL (1.6-8.9); Platelet Count 143 K/mcL (140-400); Red Cell Distribution Width 12.9 % (11.5-14.5); Segmented Neutrophils % 84.6 %; White Blood Count 7.9 K/mcL (4.3-11.1)
[2020-12-25 02:00] LABS: Alanine Aminotransferase 19 Units/L (7-52); Alkaline Phosphatase 67 Units/L (34-104); Aspartate Amino Transferase 34 Units/L (13-39); BUN/Creatinine Ratio 29 (6-26); Bilirubin,Total 0.6 mg/dL (0.3-1.0); Blood Urea Nitrogen 34 mg/dL (8-23); C-Reactive Protein 75 mg/L (Less than 10); Calcium 8.4 mg/dL (8.6-10.3); Carbon Dioxide 21 mEq/L (23-29); Chloride 102 mEq/L (98-107); Globulin 2.9 g/dL (2.4-3.5); Glucose 197 mg/dL (70-105); Lactate Dehydrogenase 325 Units/L (140-271); Magnesium 1.9 mg/dL (1.6-2.6); Osmolality,Calculated 289 (280-300); Phosphorous 2.7 mg/dL (2.7-4.5); Sodium 133 mEq/L (136-145); Total Protein 5.9 g/dL (6.4-8.9); eGFR For African Americans > 60 (> 60); eGFR For Non-African Americans 60 (> 60)
[2020-12-25 02:05] LABS: Ferritin 722 ng/mL (20-250)
[2020-12-25] MEDS: Saline Nasal Spray 44 ML BOTTLE NS SCH ×6 (03:15→19:55)
[2020-12-25] MEDS: Ipratropium 1 PUFF INHALER IH SCH ×5 (03:21→19:51)
[2020-12-25] MEDS: Piperacillin/Tazobactam 3.375 GM in 0.9 % Sodium Chloride Mini Bag 100 ML IVPB SCH ×3 (05:03→20:56)
[2020-12-25] MEDS: *HR* Enoxaparin 40 MG/0.4 ML SYRINGE SQ SCH (05:04)
[2020-12-25] MEDS: Multivit/Ca/Min/Fe/FA 1 TAB TABLET PO SCH (08:57)
[2020-12-25] MEDS: Sennosides/Docusate Sodium TABLET PO SCH ×2 (08:57→19:49)
[2020-12-25] MEDS: Lactobacillus 1 EACH CAP.SPRINK PO SCH ×2 (08:58→19:48)
[2020-12-25] MEDS: Isosorbide MONOnitrate (24 HR) 30 MG TAB.ER.24H PO SCH (08:58)
[2020-12-25] MEDS: Finasteride 5 MG TABLET PO SCH (08:58)
[2020-12-25] MEDS: Loratadine 10 MG TABLET PO SCH (08:58)
[2020-12-25] MEDS: Chlorhexidine Rinse 15 ML MOUTHWASH MM SCH ×2 (08:59→19:51)
[2020-12-25] MEDS: Aspirin Enteric Coated 81 MG Tablet PO SCH (08:59)
[2020-12-25] MEDS: Furosemide 20 MG/2 ML VIAL IVP SCH (08:59)
[2020-12-25] MEDS: Pregabalin 25 MG CAPSULE PO SCH ×2 (08:59→19:49)
[2020-12-25] MEDS: Cholecalciferol (D-3) 1,000 UNIT (25MCG) TABLET PO SCH (08:59)
[2020-12-25] MEDS: amLODIPine 5 MG TABLET PO SCH (08:59)
[2020-12-25] MEDS: Metoprolol XL (24 HR) Succ 50 MG TAB.ER.24H PO SCH (08:59)
[2020-12-25] MEDS: Insulin DETEMIR 100 UNIT/ML X5UNITS SUBQ SCH ×2 (09:00→20:56)
[2020-12-25] MEDS: Insulin LISPRO 300 UNITS/3 ML VIAL SUBQ SCH ×7 (09:01→21:06)
[2020-12-25] MEDS: Calcium Gluconate 1gm/50mL 1 GM/50 ML BAG IVPB SCH ×2 (09:01→11:43)
[2020-12-25] MEDS: Artificial Tears SOLN 15 ML BOTTLE BOTH EYES SCH ×2 (09:04→19:55)
[2020-12-25] MEDS: Remdesivir 100 MG in 0.9 % Sodium Chloride 100 ML IVPB SCH (17:27)
[2020-12-25] MEDS: Azithromycin 250 MG TABLET PO SCH (19:46)
[2020-12-25] MEDS: traZODone 50 MG TABLET PO SCH (19:47)
[2020-12-25] MEDS: Melatonin 3 MG TABLET PO SCH (19:50)
[2020-12-26] MEDS: Ipratropium 1 PUFF INHALER IH SCH ×7 (00:08→23:55)
[2020-12-26] MEDS: Saline Nasal Spray 44 ML BOTTLE NS SCH ×7 (03:45→23:45)
[2020-12-26] MEDS: *HR* Enoxaparin 40 MG/0.4 ML SYRINGE SQ SCH (05:16)
[2020-12-26] MEDS: Piperacillin/Tazobactam 3.375 GM in 0.9 % Sodium Chloride Mini Bag 100 ML IVPB SCH ×3 (05:17→20:52)
[2020-12-26 07:14] LABS: Prothrombin Time 11.9 Seconds (9.4-12.1)
[2020-12-26 07:51] LABS: Basophils % 0.3 %; Hematocrit 39.1 % (37.5-50.1); Hemoglobin 13.2 g/dL (12.9-16.9); Immature Granulocytes % 1.4 % (0-4); Lymphocytes # 0.8 K/mcL (0.6-4.6); Lymphocytes % 6.9 %; Mean Corpuscular HGB Conc 33.8 g/dL (31.6-35.5); Mean Corpuscular Hemoglobin 27.7 pg (28.0-33.3); Mean Platelet Volume 10.5 fL (9.4-12.4); Monocytes # 0.6 K/mcL (0.0-1.3); Monocytes % 5.6 %; Neutrophils # 9.4 K/mcL (1.6-8.9); Platelet Count 161 K/mcL (140-400); Red Blood Count 4.77 M/mcL (4.19-5.50); Red Cell Distribution Width 12.8 % (11.5-14.5); Segmented Neutrophils % 85.8 %; White Blood Count 10.9 K/mcL (4.3-11.1)
[2020-12-26] MEDS: Insulin LISPRO 300 UNITS/3 ML VIAL SUBQ SCH ×6 (07:51→20:47)
[2020-12-26] MEDS: Furosemide 20 MG/2 ML VIAL IVP SCH (08:10)
[2020-12-26] MEDS: Cholecalciferol (D-3) 1,000 UNIT (25MCG) TABLET PO SCH (08:11)
[2020-12-26] MEDS: Chlorhexidine Rinse 15 ML MOUTHWASH MM SCH ×2 (08:11→20:48)
[2020-12-26] MEDS: Sennosides/Docusate Sodium TABLET PO SCH ×2 (08:11→20:49)
[2020-12-26] MEDS: amLODIPine 5 MG TABLET PO SCH (08:12)
[2020-12-26] MEDS: Lactobacillus 1 EACH CAP.SPRINK PO SCH ×2 (08:12→20:50)
[2020-12-26] MEDS: Metoprolol XL (24 HR) Succ 50 MG TAB.ER.24H PO SCH (08:12)
[2020-12-26] MEDS: Pregabalin 25 MG CAPSULE PO SCH ×2 (08:12→20:49)
[2020-12-26] MEDS: Finasteride 5 MG TABLET PO SCH (08:12)
[2020-12-26] MEDS: Aspirin Enteric Coated 81 MG Tablet PO SCH (08:12)
[2020-12-26] MEDS: Isosorbide MONOnitrate (24 HR) 30 MG TAB.ER.24H PO SCH (08:12)
[2020-12-26] MEDS: Loratadine 10 MG TABLET PO SCH (08:13)
[2020-12-26] MEDS: Multivit/Ca/Min/Fe/FA 1 TAB TABLET PO SCH (08:13)
[2020-12-26 08:19] LABS: Alanine Aminotransferase 35 Units/L (7-52); Alkaline Phosphatase 82 Units/L (34-104); Aspartate Amino Transferase 55 Units/L (13-39); BUN/Creatinine Ratio 28 (6-26); Bilirubin,Total 0.8 mg/dL (0.3-1.0); Blood Urea Nitrogen 31 mg/dL (8-23); Calcium 8.8 mg/dL (8.6-10.3); Carbon Dioxide 27 mEq/L (23-29); Chloride 100 mEq/L (98-107); Globulin 2.9 g/dL (2.4-3.5); Glucose 97 mg/dL (70-105); Lactate Dehydrogenase 443 Units/L (140-271); Magnesium 2.2 mg/dL (1.6-2.6); Osmolality,Calculated 288 (280-300); Phosphorous 3.1 mg/dL (2.7-4.5); Potassium 4.3 mEq/L (3.5-5.1); Sodium 136 mEq/L (136-145); Total Protein 5.9 g/dL (6.4-8.9); eGFR For African Americans > 60 (> 60); eGFR For Non-African Americans > 60 (> 60)
[2020-12-26 08:24] LABS: Ferritin 751 ng/mL (20-250)
[2020-12-26] MEDS: Insulin DETEMIR 100 UNIT/ML X5UNITS SUBQ SCH ×2 (08:51→20:53)
[2020-12-26] MEDS: Artificial Tears SOLN 15 ML BOTTLE BOTH EYES SCH ×2 (08:51→20:50)
[2020-12-26 09:28] LABS: C-Reactive Protein 137 mg/L (Less than 10)
[2020-12-26] MEDS: Melatonin 3 MG TABLET PO SCH (20:49)
[2020-12-26] MEDS: traZODone 50 MG TABLET PO SCH (20:49)
[2020-12-26] MEDS: Azithromycin 250 MG TABLET PO SCH (20:50)
[2020-12-26] MEDS ORDERED: Insulin DETEMIR 100 UNIT/ML X5UNITS SUBQ SCH (21:00)
[2020-12-27] MEDS: Ipratropium 1 PUFF INHALER IH SCH ×5 (03:48→19:55)
[2020-12-27] MEDS: Saline Nasal Spray 44 ML BOTTLE NS SCH ×5 (04:39→20:09)
[2020-12-27] MEDS: *HR* Enoxaparin 40 MG/0.4 ML SYRINGE SQ SCH (05:12)
[2020-12-27 05:36] LABS: Basophils % 0.2 %; Hematocrit 37.3 % (37.5-50.1); Hemoglobin 12.4 g/dL (12.9-16.9); Immature Granulocytes % 1.9 % (0-4); Lymphocytes # 0.6 K/mcL (0.6-4.6); Lymphocytes % 5.3 %; Mean Corpuscular HGB Conc 33.2 g/dL (31.6-35.5); Mean Corpuscular Hemoglobin 27.3 pg (28.0-33.3); Mean Platelet Volume 10.6 fL (9.4-12.4); Monocytes # 0.5 K/mcL (0.0-1.3); Monocytes % 4.1 %; Neutrophils # 10.3 K/mcL (1.6-8.9); Platelet Count 163 K/mcL (140-400); Red Blood Count 4.55 M/mcL (4.19-5.50); Red Cell Distribution Width 13.1 % (11.5-14.5); Segmented Neutrophils % 88.5 %; White Blood Count 11.6 K/mcL (4.3-11.1)
[2020-12-27 05:42] LABS: INR 1.1; Prothrombin Time 12.6 Seconds (9.4-12.1)
[2020-12-27 05:55] LABS: Alanine Aminotransferase 32 Units/L (7-52); Albumin 2.6 g/dL (3.5-5.7); Albumin/Globulin Ratio 0.9 (1.1-2.2); Aspartate Amino Transferase 44 Units/L (13-39); BUN/Creatinine Ratio 31 (6-26); Bilirubin,Total 0.9 mg/dL (0.3-1.0); Blood Urea Nitrogen 35 mg/dL (8-23); C-Reactive Protein 233 mg/L (Less than 10); Calcium 8.2 mg/dL (8.6-10.3); Carbon Dioxide 26 mEq/L (23-29); Chloride 99 mEq/L (98-107); Glucose 281 mg/dL (70-105); Lactate Dehydrogenase 431 Units/L (140-271); Magnesium 2.1 mg/dL (1.6-2.6); Osmolality,Calculated 296 (280-300); Phosphorous 3.4 mg/dL (2.7-4.5); Potassium 4.5 mEq/L (3.5-5.1); Sodium 134 mEq/L (136-145); Total Protein 5.6 g/dL (6.4-8.9); eGFR For African Americans > 60 (> 60); eGFR For Non-African Americans > 60 (> 60)
[2020-12-27 05:59] LABS: Alkaline Phosphatase 90 Units/L (34-104)
[2020-12-27 06:13] LABS: Ferritin 1048 ng/mL (20-250)
[2020-12-27] MEDS: Aspirin Enteric Coated 81 MG Tablet PO SCH (10:17)
[2020-12-27] MEDS: Lactobacillus 1 EACH CAP.SPRINK PO SCH ×2 (10:17→20:09)
[2020-12-27] MEDS: Multivit/Ca/Min/Fe/FA 1 TAB TABLET PO SCH (10:17)
[2020-12-27] MEDS: Pregabalin 25 MG CAPSULE PO SCH ×2 (10:18→20:08)
[2020-12-27] MEDS: Finasteride 5 MG TABLET PO SCH (10:18)
[2020-12-27] MEDS: Metoprolol XL (24 HR) Succ 50 MG TAB.ER.24H PO SCH (10:19)
[2020-12-27] MEDS: Cholecalciferol (D-3) 1,000 UNIT (25MCG) TABLET PO SCH (10:19)
[2020-12-27] MEDS: Loratadine 10 MG TABLET PO SCH (10:19)
[2020-12-27] MEDS: amLODIPine 5 MG TABLET PO SCH (10:20)
[2020-12-27] MEDS: Furosemide 20 MG/2 ML VIAL IVP SCH (10:21)
[2020-12-27] MEDS: Isosorbide MONOnitrate (24 HR) 30 MG TAB.ER.24H PO SCH (10:21)
[2020-12-27] MEDS: Insulin DETEMIR 100 UNIT/ML X5UNITS SUBQ SCH ×2 (10:22→20:07)
[2020-12-27] MEDS: Sennosides/Docusate Sodium TABLET PO SCH ×2 (10:22→20:08)
[2020-12-27] MEDS: Chlorhexidine Rinse 15 ML MOUTHWASH MM SCH ×2 (10:22→20:07)
[2020-12-27] MEDS: Insulin LISPRO 300 UNITS/3 ML VIAL SUBQ SCH ×4 (10:35→19:48)
[2020-12-27] MEDS: Artificial Tears SOLN 15 ML BOTTLE BOTH EYES SCH ×2 (10:36→20:09)
[2020-12-27] MEDS ORDERED: Isovue-370 500 ML BOTTLE IVP ONE (12:03)
[2020-12-27] MEDS ORDERED: Dexamethasone Sodium Phos/PF 10 MG/ML VIAL IVP ONE (12:37)
[2020-12-27] MEDS ORDERED: *HR* Heparin 5,000 UNIT/ML VIAL IVP PRN ×2 (16:26)
[2020-12-27] MEDS ORDERED: *HR* Heparin 5,000 UNIT/ML VIAL IVP ONE (16:26)
[2020-12-27 17:01] LABS: Hematocrit 37.2 % (37.5-50.1); Hemoglobin 12.3 g/dL (12.9-16.9); Mean Corpuscular HGB Conc 33.1 g/dL (31.6-35.5); Mean Corpuscular Hemoglobin 27.1 pg (28.0-33.3); Mean Corpuscular Volume 81.9 fL (83.0-100.0); Mean Platelet Volume 10.5 fL (9.4-12.4); Platelet Count 182 K/mcL (140-400); Red Blood Count 4.54 M/mcL (4.19-5.50); Red Cell Distribution Width 13.1 % (11.5-14.5); White Blood Count 14.8 K/mcL (4.3-11.1)
[2020-12-27 17:07] LABS: INR 1.1; Prothrombin Time 12.5 Seconds (9.4-12.1)
[2020-12-27 17:08] LABS: Heparin anti-factor XA UFH 0.15 IU/mL (0.30-0.70)
[2020-12-27] MEDS: Heparin 25,000UNIT/250ML 1/2NS 25,000 UNIT/250 ML IV.SOLN IVC SCH (17:42)
[2020-12-27] MEDS: Melatonin 3 MG TABLET PO SCH (20:08)
[2020-12-27] MEDS: traZODone 50 MG TABLET PO SCH (20:09)
[2020-12-28] MEDS: Ipratropium 1 PUFF INHALER IH SCH ×7 (00:07→22:56)
[2020-12-28] MEDS: Saline Nasal Spray 44 ML BOTTLE NS SCH ×5 (00:34→17:14)
[2020-12-28 00:51] LABS: Basophils % 0.2 %; Hematocrit 35.2 % (37.5-50.1); Hemoglobin 11.9 g/dL (12.9-16.9); Lymphocytes # 0.6 K/mcL (0.6-4.6); Lymphocytes % 4.3 %; Mean Corpuscular HGB Conc 33.8 g/dL (31.6-35.5); Mean Corpuscular Hemoglobin 27.7 pg (28.0-33.3); Mean Corpuscular Volume 81.9 fL (83.0-100.0); Mean Platelet Volume 10.5 fL (9.4-12.4); Monocytes # 0.4 K/mcL (0.0-1.3); Monocytes % 3.1 %; Neutrophils # 11.5 K/mcL (1.6-8.9); Platelet Count 182 K/mcL (140-400); Red Cell Distribution Width 13.1 % (11.5-14.5); Segmented Neutrophils % 90.4 %; White Blood Count 12.7 K/mcL (4.3-11.1)
[2020-12-28 00:59] LABS: INR 1.3; Prothrombin Time 14.4 Seconds (9.4-12.1)
[2020-12-28 01:03] LABS: Alanine Aminotransferase 26 Units/L (7-52); Albumin 2.6 g/dL (3.5-5.7); Albumin/Globulin Ratio 0.8 (1.1-2.2); Alkaline Phosphatase 99 Units/L (34-104); Aspartate Amino Transferase 37 Units/L (13-39); BUN/Creatinine Ratio 35 (6-26); Bilirubin,Total 0.8 mg/dL (0.3-1.0); Blood Urea Nitrogen 38 mg/dL (8-23); C-Reactive Protein 250 mg/L (Less than 10); Calcium 8.5 mg/dL (8.6-10.3); Carbon Dioxide 28 mEq/L (23-29); Chloride 102 mEq/L (98-107); Globulin 3.1 g/dL (2.4-3.5); Glucose 135 mg/dL (70-105); Lactate Dehydrogenase 430 Units/L (140-271); Magnesium 2.4 mg/dL (1.6-2.6); Osmolality,Calculated 293 (280-300); Phosphorous 3.2 mg/dL (2.7-4.5); Potassium 4.4 mEq/L (3.5-5.1); Sodium 136 mEq/L (136-145); Total Protein 5.7 g/dL (6.4-8.9); eGFR For African Americans > 60 (> 60); eGFR For Non-African Americans > 60 (> 60)
[2020-12-28 01:21] LABS: Ferritin 1126 ng/mL (20-250)
[2020-12-28] MEDS: Cholecalciferol (D-3) 1,000 UNIT (25MCG) TABLET PO SCH (10:02)
[2020-12-28] MEDS: Finasteride 5 MG TABLET PO SCH (10:02)
[2020-12-28] MEDS: amLODIPine 5 MG TABLET PO SCH (10:02)
[2020-12-28] MEDS: Metoprolol XL (24 HR) Succ 50 MG TAB.ER.24H PO SCH (10:03)
[2020-12-28] MEDS: Lactobacillus 1 EACH CAP.SPRINK PO SCH ×2 (10:03→23:57)
[2020-12-28] MEDS: Loratadine 10 MG TABLET PO SCH (10:03)
[2020-12-28] MEDS: Aspirin Enteric Coated 81 MG Tablet PO SCH (10:03)
[2020-12-28] MEDS: Isosorbide MONOnitrate (24 HR) 30 MG TAB.ER.24H PO SCH (10:03)
[2020-12-28] MEDS: Sennosides/Docusate Sodium TABLET PO SCH ×2 (10:05→23:57)
[2020-12-28] MEDS: Chlorhexidine Rinse 15 ML MOUTHWASH MM SCH ×2 (10:05→23:58)
[2020-12-28] MEDS: Pantoprazole 40 MG VIAL IVP SCH (10:05)
[2020-12-28] MEDS: Pregabalin 25 MG CAPSULE PO SCH ×2 (10:05→23:58)
[2020-12-28] MEDS: Multivit/Ca/Min/Fe/FA 1 TAB TABLET PO SCH (10:06)
[2020-12-28] MEDS: Insulin LISPRO 300 UNITS/3 ML VIAL SUBQ SCH ×4 (10:19→20:42)
[2020-12-28] MEDS: Insulin DETEMIR 100 UNIT/ML X5UNITS SUBQ SCH ×2 (10:20→20:46)
[2020-12-28] MEDS: Artificial Tears SOLN 15 ML BOTTLE BOTH EYES SCH ×2 (10:21→23:58)
[2020-12-28] MEDS: Heparin 25,000UNIT/250ML 1/2NS 25,000 UNIT/250 ML IV.SOLN IVC SCH (20:36)
[2020-12-28] MEDS: Melatonin 3 MG TABLET PO SCH (23:57)
[2020-12-29] MEDS: traZODone 50 MG TABLET PO SCH ×2 (00:07→20:34)
[2020-12-29] MEDS: Saline Nasal Spray 44 ML BOTTLE NS SCH ×6 (00:09→20:32)
[2020-12-29 02:55] LABS: Basophils % 0.2 %; Hematocrit 38.4 % (37.5-50.1); Immature Granulocytes % 2.1 % (0-4); Lymphocytes # 0.7 K/mcL (0.6-4.6); Lymphocytes % 5.4 %; Mean Corpuscular HGB Conc 33.9 g/dL (31.6-35.5); Mean Corpuscular Hemoglobin 27.8 pg (28.0-33.3); Mean Corpuscular Volume 82.2 fL (83.0-100.0); Mean Platelet Volume 10.3 fL (9.4-12.4); Monocytes # 0.4 K/mcL (0.0-1.3); Monocytes % 3.2 %; Neutrophils # 11.3 K/mcL (1.6-8.9); Platelet Count 214 K/mcL (140-400); Red Blood Count 4.67 M/mcL (4.19-5.50); Red Cell Distribution Width 12.9 % (11.5-14.5); Segmented Neutrophils % 89.1 %; White Blood Count 12.6 K/mcL (4.3-11.1)
[2020-12-29 03:14] LABS: BUN/Creatinine Ratio 39 (6-26); Blood Urea Nitrogen 40 mg/dL (8-23); Calcium 8.7 mg/dL (8.6-10.3); Carbon Dioxide 25 mEq/L (23-29); Chloride 103 mEq/L (98-107); Glucose 138 mg/dL (70-105); Magnesium 2.5 mg/dL (1.6-2.6); Osmolality,Calculated 294 (280-300); Phosphorous 2.7 mg/dL (2.7-4.5); Potassium 4.4 mEq/L (3.5-5.1); Sodium 136 mEq/L (136-145); eGFR For African Americans > 60 (> 60); eGFR For Non-African Americans > 60 (> 60)
[2020-12-29] MEDS: Ipratropium 1 PUFF INHALER IH SCH ×6 (03:56→22:41)
[2020-12-29] MEDS: Insulin LISPRO 300 UNITS/3 ML VIAL SUBQ SCH ×4 (07:25→23:58)
[2020-12-29] MEDS: Pantoprazole 40 MG VIAL IVP SCH (07:45)
[2020-12-29] MEDS: Insulin DETEMIR 100 UNIT/ML X5UNITS SUBQ SCH (07:45)
[2020-12-29] MEDS: Artificial Tears SOLN 15 ML BOTTLE BOTH EYES SCH ×2 (07:47→20:32)
[2020-12-29] MEDS: Aspirin Enteric Coated 81 MG Tablet PO SCH (08:08)
[2020-12-29] MEDS: NIFEdipine XL (24 HR) 60 MG TAB.ER.24 PO SCH (08:09)
[2020-12-29] MEDS: Isosorbide MONOnitrate (24 HR) 30 MG TAB.ER.24H PO SCH (08:09)
[2020-12-29] MEDS: Lactobacillus 1 EACH CAP.SPRINK PO SCH ×2 (08:09→20:33)
[2020-12-29] MEDS: Pregabalin 25 MG CAPSULE PO SCH ×2 (08:09→20:33)
[2020-12-29] MEDS: Finasteride 5 MG TABLET PO SCH (08:09)
[2020-12-29] MEDS: Loratadine 10 MG TABLET PO SCH (08:09)
[2020-12-29] MEDS: Metoprolol XL (24 HR) Succ 50 MG TAB.ER.24H PO SCH (08:09)
[2020-12-29] MEDS: Chlorhexidine Rinse 15 ML MOUTHWASH MM SCH ×2 (08:09→20:33)
[2020-12-29] MEDS: Sennosides/Docusate Sodium TABLET PO SCH ×2 (08:09→20:34)
[2020-12-29] MEDS: Multivit/Ca/Min/Fe/FA 1 TAB TABLET PO SCH (08:09)
[2020-12-29] MEDS: Cholecalciferol (D-3) 1,000 UNIT (25MCG) TABLET PO SCH (08:10)
[2020-12-29 13:06] LABS: Triglycerides 140 mg/dL (< 150)
[2020-12-29] MEDS ORDERED: D10% in Water 500 ML IVC PRN (13:44)
[2020-12-29] MEDS ORDERED: Lidocaine -MPF 1% 5 ML AMPUL INFILT ONE (15:48)
[2020-12-29] MEDS ORDERED: Insulin LISPRO 300 UNITS/3 ML VIAL SUBQ SCH ×3 (16:30→21:00)
[2020-12-29] MEDS ORDERED: Clinimix E 5%-15% SOLUTION 2,000 ML with MVI, adult with vitamin K 10 ML IVC SCH (17:00)
[2020-12-29] MEDS: Melatonin 3 MG TABLET PO SCH (20:33)
[2020-12-29] MEDS: Heparin 25,000UNIT/250ML 1/2NS 25,000 UNIT/250 ML IV.SOLN IVC SCH ×2 (23:42→23:56)
[2020-12-30] MEDS: Dexmedetomidine HCl 400 MCG/100 ML MLS IVC SCH ×3 (02:37→19:16)
[2020-12-30] MEDS: Ipratropium 1 PUFF INHALER IH SCH ×6 (03:25→23:36)
[2020-12-30 03:39] LABS: Basophils % 0.3 %; Eosinophils % 0.1 %; Hematocrit 42.1 % (37.5-50.1); Hemoglobin 13.7 g/dL (12.9-16.9); Immature Granulocytes % 2.5 % (0-4); Lymphocytes # 0.6 K/mcL (0.6-4.6); Mean Corpuscular HGB Conc 32.5 g/dL (31.6-35.5); Mean Corpuscular Hemoglobin 27.6 pg (28.0-33.3); Mean Corpuscular Volume 84.7 fL (83.0-100.0); Mean Platelet Volume 11.1 fL (9.4-12.4); Monocytes # 0.3 K/mcL (0.0-1.3); Monocytes % 1.8 %; Neutrophils # 12.6 K/mcL (1.6-8.9); Platelet Count 227 K/mcL (140-400); Red Blood Count 4.97 M/mcL (4.19-5.50); Red Cell Distribution Width 13.2 % (11.5-14.5); Segmented Neutrophils % 91.3 %; White Blood Count 13.8 K/mcL (4.3-11.1)
[2020-12-30 03:53] LABS: BUN/Creatinine Ratio 35 (6-26); Blood Urea Nitrogen 39 mg/dL (8-23); Calcium 8.9 mg/dL (8.6-10.3); Carbon Dioxide 24 mEq/L (23-29); Chloride 102 mEq/L (98-107); Glucose 239 mg/dL (70-105); Magnesium 2.6 mg/dL (1.6-2.6); Osmolality,Calculated 299 (280-300); Phosphorous 2.4 mg/dL (2.7-4.5); Potassium 4.3 mEq/L (3.5-5.1); Sodium 136 mEq/L (136-145); eGFR For African Americans > 60 (> 60); eGFR For Non-African Americans > 60 (> 60)
[2020-12-30] MEDS: Insulin LISPRO 300 UNITS/3 ML VIAL SUBQ SCH ×4 (04:56→16:57)
[2020-12-30] MEDS: Saline Nasal Spray 44 ML BOTTLE NS SCH ×6 (07:21→21:21)
[2020-12-30] MEDS: Chlorhexidine Rinse 15 ML MOUTHWASH MM SCH ×3 (07:59→21:34)
[2020-12-30] MEDS: Pantoprazole 40 MG VIAL IVP SCH (08:02)
[2020-12-30] MEDS: Artificial Tears SOLN 15 ML BOTTLE BOTH EYES SCH ×2 (08:03→21:32)
[2020-12-30] MEDS: Aspirin Enteric Coated 81 MG Tablet PO SCH (08:03)
[2020-12-30] MEDS: Lactobacillus 1 EACH CAP.SPRINK PO SCH ×2 (08:03→21:33)
[2020-12-30] MEDS: Loratadine 10 MG TABLET PO SCH (08:03)
[2020-12-30] MEDS: Pregabalin 25 MG CAPSULE PO SCH ×2 (08:04→21:33)
[2020-12-30] MEDS: Cholecalciferol (D-3) 1,000 UNIT (25MCG) TABLET PO SCH (08:04)
[2020-12-30] MEDS: Multivit/Ca/Min/Fe/FA 1 TAB TABLET PO SCH (08:04)
[2020-12-30] MEDS: Sennosides/Docusate Sodium TABLET PO SCH ×2 (08:04→21:33)
[2020-12-30] MEDS: Finasteride 5 MG TABLET PO SCH (08:04)
[2020-12-30] MEDS: NIFEdipine XL (24 HR) 60 MG TAB.ER.24 PO SCH (08:04)
[2020-12-30] MEDS ORDERED: Insulin DETEMIR 100 UNIT/ML X5UNITS SUBQ SCH (09:00)
[2020-12-30] MEDS: *HR* Metoprolol 5 MG/5 ML VIAL IVP SCH ×2 (13:28→19:39)
[2020-12-30] MEDS ORDERED: Clinimix E 5%-15% SOLUTION 2,000 ML with MVI, adult with vitamin K 10 ML IVC SCH (17:00)
[2020-12-30 18:41] LABS: Hemoglobin 10.2 g/dL (12.9-16.9)
[2020-12-30 18:52] LABS: Bilirubin,Urine Negative (Negative); Blood,Urine Large (Negative); Clarity,Urine Turbid (Clear); Color,Urine Red (Yellow); Glucose,Urine (UA) 300 mg/dL (Normal); Ketones,Urine Negative (Negative); Leukocyte Esterase,Urine Negative (Negative); Nitrite,Urine Negative (Negative); PH,Urine 6.5 pH Units (5.0-8.0); Protein,Urine 200 mg/dL (Neg-Trace); Specific Gravity,Urine 1.029 (1.010-1.025); Urobilinogen,Urine Normal (Normal)
[2020-12-30] MEDS: Insulin DETEMIR 100 UNIT/ML X5UNITS SUBQ SCH (21:32)
[2020-12-30] MEDS: traZODone 50 MG TABLET PO SCH (21:33)
[2020-12-30] MEDS: Melatonin 3 MG TABLET PO SCH (21:33)
[2020-12-31] MEDS ORDERED: *HR* Propofol 200 MG/20 ML VIAL IVP ONE (00:30)
[2020-12-31] MEDS ORDERED: *HR* Succinylcholine 200 MG/10 ML VIAL IVP ONE (00:30)
[2020-12-31] MEDS: *HR* Metoprolol 5 MG/5 ML VIAL IVP SCH ×5 (00:35→20:22)
[2020-12-31] MEDS ORDERED: *HR* LORazepam 2 MG/ML VIAL ONE (00:38)
[2020-12-31] MEDS ORDERED: *HR* LORazepam 2 MG/ML VIAL IVP ONE (00:40)
[2020-12-31] MEDS ORDERED: Naloxone 0.4 MG/ML INJ IVP PRN (01:27)
[2020-12-31] MEDS ORDERED: Artificial Tears SOLN 15 ML BOTTLE BOTH EYES PRN (01:27)
[2020-12-31] MEDS: Insulin LISPRO 300 UNITS/3 ML VIAL SUBQ SCH ×6 (01:55→23:45)
[2020-12-31] MEDS: Saline Nasal Spray 44 ML BOTTLE NS SCH ×7 (01:56→20:23)
[2020-12-31] MEDS: Dexmedetomidine HCl 400 MCG/100 ML MLS IVC SCH (01:57)
[2020-12-31] MEDS: Norepinephrine 4 MG/254 ML IV.SOLN IVC SCH ×6 (01:57→23:04)
[2020-12-31] MEDS: FentaNYL (PF) 1,000 MCG/100 ML IV.SOLN IVC SCH ×4 (02:32→20:42)
[2020-12-31] MEDS: Ipratropium 1 PUFF INHALER IH SCH ×6 (03:12→23:44)
[2020-12-31] MEDS: Artificial Tears SOLN 15 ML BOTTLE BOTH EYES SCH ×10 (03:36→23:02)
[2020-12-31] MEDS: Midazolam HCl 50 MG/100 ML IV.SOLN IVC SCH ×2 (03:36→18:46)
[2020-12-31 03:46] LABS: ABG Base Excess -3 mEq/L (-2 to 3); ABG HCO3 25 mEq/L (21-27); ABG Oxygen Saturation 91 % (95-98); ABG PCO2 55 mmHg (35-45); ABG PH 7.27 pH Units (7.32-7.45); ABG PO2 72 mmHg (85-104); ABG TCO2 27 mEq/L (20-26); Blood Gas VT 480 cc
[2020-12-31] MEDS: Pantoprazole 40 MG VIAL IVP SCH ×3 (05:06→16:47)
[2020-12-31 05:40] LABS: Calcium 8.6 mg/dL (8.6-10.3); Magnesium 2.6 mg/dL (1.6-2.6); Phosphorous 6.2 mg/dL (2.7-4.5); Potassium 5.5 mEq/L (3.5-5.1)
[2020-12-31 06:12] LABS: Basophils % 0.3 %; Mean Corpuscular Hemoglobin 27.4 pg (28.0-33.3); Red Cell Distribution Width 13.2 % (11.5-14.5)
[2020-12-31 06:13] LABS: Basophils # 0.1 K/mcL (0.0-0.2); Eosinophils # 0.1 K/mcL (0.0-0.6); Eosinophils % 0.2 %; Hematocrit 41.6 % (37.5-50.1); Hemoglobin 12.9 g/dL (12.9-16.9); Immature Granulocytes % 1.6 % (0-4); Lymphocytes % 2.4 %; Mean Corpuscular Volume 88.3 fL (83.0-100.0); Mean Platelet Volume 10.9 fL (9.4-12.4); Monocytes # 0.4 K/mcL (0.0-1.3); Monocytes % 1.3 %; Neutrophils # 29.4 K/mcL (1.6-8.9); Platelet Count 253 K/mcL (140-400); Red Blood Count 4.71 M/mcL (4.19-5.50); Segmented Neutrophils % 94.2 %
[2020-12-31 06:16] LABS: Lymphocytes # 0.8 K/mcL (0.6-4.6)
[2020-12-31 06:18] LABS: White Blood Count 31.2 K/mcL (4.3-11.1)
[2020-12-31 06:37] LABS: Platelet Estimate Normal (Normal)
[2020-12-31 06:38] LABS: Poikilocytosis 1+ (Not Present)
[2020-12-31] MEDS: Cholecalciferol (D-3) 1,000 UNIT (25MCG) TABLET PO SCH (07:46)
[2020-12-31] MEDS: Finasteride 5 MG TABLET PO SCH (07:47)
[2020-12-31] MEDS: Pregabalin 25 MG CAPSULE PO SCH ×2 (07:47→19:03)
[2020-12-31] MEDS: Loratadine 10 MG TABLET PO SCH (07:47)
[2020-12-31] MEDS: NIFEdipine XL (24 HR) 60 MG TAB.ER.24 PO SCH (07:47)
[2020-12-31] MEDS: Chlorhexidine Rinse 15 ML MOUTHWASH MM SCH ×4 (07:48→19:39)
[2020-12-31] MEDS: Lactobacillus 1 EACH CAP.SPRINK PO SCH ×2 (07:48→19:42)
[2020-12-31] MEDS: Aspirin Enteric Coated 81 MG Tablet PO SCH (07:48)
[2020-12-31] MEDS: Multivit/Ca/Min/Fe/FA 1 TAB TABLET PO SCH (07:48)
[2020-12-31] MEDS: Piperacillin/Tazobactam 3.375 GM in 0.9 % Sodium Chloride Mini Bag 100 ML IVPB SCH ×3 (07:49→23:02)
[2020-12-31] MEDS: Sennosides/Docusate Sodium TABLET PO SCH ×2 (07:53→19:40)
[2020-12-31] MEDS: Acetaminophen 325 MG TABLET PO PRN (08:57)
[2020-12-31] MEDS: Insulin DETEMIR 100 UNIT/ML X5UNITS SUBQ SCH (08:58)
[2020-12-31] MEDS ORDERED: *HR* Heparin 5,000 UNIT/ML VIAL IVP PRN ×2 (11:42)
[2020-12-31] MEDS ORDERED: *HR* Dextrose 50 % in Water (Vial) 50 ML VIAL IVP PRN (11:44)
[2020-12-31] MEDS ORDERED: Dextrose Gel 15 GM/37.5 ML TUBE PO PRN ×2 (11:44)
[2020-12-31] MEDS ORDERED: D5% in Water 1,000 ML IVC PRN (11:44)
[2020-12-31] MEDS: Heparin 25,000UNIT/250ML 1/2NS 25,000 UNIT/250 ML IV.SOLN IVC SCH ×2 (13:13→23:50)
[2020-12-31] MEDS ORDERED: D10% in Water 500 ML IVC PRN (14:11)
[2020-12-31] MEDS ORDERED: Clinimix E 5%-15% SOLUTION 2,000 ML with MVI, adult with vitamin K 10 ML IVC SCH (17:00)
[2020-12-31] MEDS ORDERED: Clinimix 5%-20% SOLUTION 2,000 ML with MVI, adult with vitamin K 10 ML, Sodium Chlori... IVC SCH (17:00)
[2020-12-31] MEDS: Melatonin 3 MG TABLET PO SCH (19:03)
[2020-12-31] MEDS: traZODone 50 MG TABLET PO SCH (19:40)
[2020-12-31] MEDS ORDERED: Insulin DETEMIR 100 UNIT/ML X5UNITS SUBQ SCH (21:00)
[2021-01-01] MEDS: FentaNYL (PF) 1,000 MCG/100 ML IV.SOLN IVC SCH ×3 (03:05→18:00)
[2021-01-01] MEDS: Artificial Tears SOLN 15 ML BOTTLE BOTH EYES SCH ×6 (03:06→23:13)
[2021-01-01] MEDS: Norepinephrine 4 MG/254 ML IV.SOLN IVC SCH ×4 (03:25→21:37)
[2021-01-01] MEDS: Ipratropium 1 PUFF INHALER IH SCH ×6 (03:50→23:44)
[2021-01-01 04:30] LABS: Calcium 7.9 mg/dL (8.6-10.3); Magnesium 3.2 mg/dL (1.6-2.6); Phosphorous 7.5 mg/dL (2.7-4.5)
[2021-01-01 04:38] LABS: Heparin anti-factor XA UFH 0.94 IU/mL (0.30-0.70)
[2021-01-01] MEDS: Insulin LISPRO 300 UNITS/3 ML VIAL SUBQ SCH (04:39)
[2021-01-01] MEDS: Pantoprazole 40 MG VIAL IVP SCH ×3 (04:45→18:51)
[2021-01-01 05:27] LABS: Hematocrit 36.1 % (37.5-50.1); Hemoglobin 10.6 g/dL (12.9-16.9); Mean Corpuscular HGB Conc 29.4 g/dL (31.6-35.5); Mean Corpuscular Volume 95.3 fL (83.0-100.0); Mean Platelet Volume 11.2 fL (9.4-12.4); Platelet Count 192 K/mcL (140-400); Red Blood Count 3.79 M/mcL (4.19-5.50); Red Cell Distribution Width 13.8 % (11.5-14.5); White Blood Count 27.9 K/mcL (4.3-11.1)
[2021-01-01 05:54] LABS: ABG Base Excess -8 mEq/L (-2 to 3); ABG HCO3 22 mEq/L (21-27); ABG Oxygen Saturation 91 % (95-98); ABG PCO2 67 mmHg (35-45); ABG PH 7.13 pH Units (7.32-7.45); ABG PO2 82 mmHg (85-104); ABG TCO2 24 mEq/L (20-26); Blood Gas Modality AF; Blood Gas VT 420 cc
[2021-01-01 08:11] LABS: Burr Cells 1+ (Not Present); Lymphocytes # 0.6 K/mcL (0.6-4.6); Monocytes # 0.6 K/mcL (0.0-1.3); Neutrophils # 26.8 K/mcL (1.6-8.9); Platelet Estimate Normal (Normal)
[2021-01-01] MEDS ORDERED: Insulin DETEMIR 100 UNIT/ML X5UNITS SUBQ SCH (09:00)
[2021-01-01] MEDS: Piperacillin/Tazobactam 3.375 GM in 0.9 % Sodium Chloride Mini Bag 100 ML IVPB SCH ×3 (09:13→21:21)
[2021-01-01] MEDS: Chlorhexidine Rinse 15 ML MOUTHWASH MM SCH ×2 (09:15→19:26)
[2021-01-01] MEDS: Aspirin Enteric Coated 81 MG Tablet PO SCH (09:15)
[2021-01-01] MEDS: Saline Nasal Spray 44 ML BOTTLE NS SCH (09:15)
[2021-01-01] MEDS: Cholecalciferol (D-3) 1,000 UNIT (25MCG) TABLET PO SCH (09:16)
[2021-01-01] MEDS: Sennosides/Docusate Sodium TABLET PO SCH ×2 (09:16→19:26)
[2021-01-01] MEDS: Multivit/Ca/Min/Fe/FA 1 TAB TABLET PO SCH (09:16)
[2021-01-01] MEDS: Finasteride 5 MG TABLET PO SCH (09:16)
[2021-01-01] MEDS: Lactobacillus 1 EACH CAP.SPRINK PO SCH ×2 (09:16→19:26)
[2021-01-01] MEDS: Loratadine 10 MG TABLET PO SCH (09:16)
[2021-01-01] MEDS: NIFEdipine XL (24 HR) 60 MG TAB.ER.24 PO SCH (09:18)
[2021-01-01] MEDS: Pregabalin 25 MG CAPSULE PO SCH (09:18)
[2021-01-01] MEDS ORDERED: 0.9 % Sodium Chloride 1,000 ML PRIME ONE (10:48)
[2021-01-01] MEDS ORDERED: *HR* Heparin 5,000 UNIT/ML VIAL IVP PRN (10:48)
[2021-01-01] MEDS ORDERED: *HR* Alteplase (Cathflo) 2 MG VIAL IVP PRN (11:15)
[2021-01-01] MEDS ORDERED: Insulin LISPRO 300 UNITS/3 ML VIAL SUBQ SCH (12:00)
[2021-01-01] MEDS: *HR* Metoprolol 5 MG/5 ML VIAL IVP SCH ×3 (12:16→23:13)
[2021-01-01 13:05] LABS: ABG Base Excess -7 mEq/L (-2 to 3); ABG HCO3 20 mEq/L (21-27); ABG Oxygen Saturation 96 % (95-98); ABG PCO2 48 mmHg (35-45); ABG PH 7.23 pH Units (7.32-7.45); ABG PO2 95 mmHg (85-104); ABG TCO2 22 mEq/L (20-26); Blood Gas Modality ASSIST CONTROL; Blood Gas VT 500 cc
[2021-01-01] MEDS: Midazolam HCl 50 MG/100 ML IV.SOLN IVC SCH (13:20)
[2021-01-01] MEDS: Heparin 25,000UNIT/250ML 1/2NS 25,000 UNIT/250 ML IV.SOLN IVC SCH (13:30)
[2021-01-01] MEDS ORDERED: Heparin 1,000 UNITS/500 mL 500 ML ONE (13:57)
[2021-01-01] MEDS ORDERED: *HR* Heparin 5,000 UNIT/ML VIAL ONE (14:45)
[2021-01-01 16:08] LABS: Bacteria,Urine Few per hpf (None-Few); Bilirubin,Urine Negative (Negative); Blood,Urine Moderate (Negative); Clarity,Urine Ex.Turbid (Clear); Color,Urine Light-Brown (Yellow); Glucose,Urine (UA) 500 mg/dL (Normal); Ketones,Urine Negative (Negative); Leukocyte Esterase,Urine Negative (Negative); Nitrite,Urine Negative (Negative); PH,Urine 5.5 pH Units (5.0-8.0); Protein,Urine 50 mg/dL (Neg-Trace); RBC,Urine TNTC per hpf (0-3); Specific Gravity,Urine 1.018 (1.010-1.025); Urobilinogen,Urine Normal (Normal); WBC,Urine 15-30 per hpf (0-3)
[2021-01-01] MEDS ORDERED: Clinimix 5%-20% SOLUTION 2,000 ML with MVI, adult with vitamin K 10 ML, Sodium Acetat... IVC SCH (17:00)
[2021-01-01] MEDS: PrismaSATE BGK 4/2.5 5,000 ML CRRT SCH ×6 (18:09→23:14)
[2021-01-01 18:20] LABS: Protein/Creatinine Ratio,Urine 2.12 mg/mg (0.00-0.20)
[2021-01-01] MEDS: 0.9 % Sodium Chloride 1,000 ML PRIME SCH ×5 (19:26→23:13)
[2021-01-02] MEDS: PrismaSATE BGK 4/2.5 5,000 ML CRRT SCH ×14 (01:12→20:36)
[2021-01-02] MEDS: FentaNYL (PF) 1,000 MCG/100 ML IV.SOLN IVC SCH ×3 (02:01→13:54)
[2021-01-02] MEDS: 0.9 % Sodium Chloride 1,000 ML PRIME SCH ×5 (02:05→06:18)
[2021-01-02] MEDS: Norepinephrine 4 MG/254 ML IV.SOLN IVC SCH ×3 (03:30→09:39)
[2021-01-02] MEDS: Artificial Tears SOLN 15 ML BOTTLE BOTH EYES SCH ×5 (03:33→20:37)
[2021-01-02 03:46] LABS: VBG Ionized Calcium 1.11 mmol/L (1.15-1.35)
[2021-01-02 03:50] LABS: Basophils % 0.1 %; Lymphocytes % 2.9 %
[2021-01-02 03:51] LABS: Eosinophils # 0.2 K/mcL (0.0-0.6); Eosinophils % 0.6 %; Hematocrit 33.3 % (37.5-50.1); Hemoglobin 10.6 g/dL (12.9-16.9); Immature Granulocytes % 2.4 % (0-4); Lymphocytes # 0.8 K/mcL (0.6-4.6); Mean Corpuscular HGB Conc 31.8 g/dL (31.6-35.5); Mean Corpuscular Hemoglobin 28.2 pg (28.0-33.3); Mean Corpuscular Volume 88.6 fL (83.0-100.0); Mean Platelet Volume 11.6 fL (9.4-12.4); Monocytes # 0.6 K/mcL (0.0-1.3); Monocytes % 2.2 %; Platelet Count 184 K/mcL (140-400); Red Blood Count 3.76 M/mcL (4.19-5.50); Red Cell Distribution Width 13.8 % (11.5-14.5); Segmented Neutrophils % 91.8 %; White Blood Count 27.4 K/mcL (4.3-11.1)
[2021-01-02 04:00] LABS: Neutrophils # 25.2 K/mcL (1.6-8.9)
[2021-01-02 04:05] LABS: ABG Base Excess -3 mEq/L (-2 to 3); ABG HCO3 25 mEq/L (21-27); ABG Oxygen Saturation 86 % (95-98); ABG PCO2 59 mmHg (35-45); ABG PH 7.23 pH Units (7.32-7.45); ABG PO2 63 mmHg (85-104); ABG TCO2 27 mEq/L (20-26); Blood Gas VT 500 cc
[2021-01-02 04:09] LABS: Albumin 2.2 g/dL (3.5-5.7); Albumin/Globulin Ratio 0.6 (1.1-2.2); Bilirubin,Direct 0.3 mg/dL (0.0-0.2); Bilirubin,Indirect 0.3 mg/dL (0.0-1.0); Bilirubin,Total 0.6 mg/dL (0.3-1.0); Globulin 3.6 g/dL (2.4-3.5); Total Protein 5.8 g/dL (6.4-8.9)
[2021-01-02 04:11] LABS: Calcium 7.6 mg/dL (8.6-10.3); Magnesium 2.6 mg/dL (1.6-2.6); Phosphorous 3.2 mg/dL (2.7-4.5); Potassium 4.8 mEq/L (3.5-5.1)
[2021-01-02] MEDS: Ipratropium 1 PUFF INHALER IH SCH ×6 (04:22→23:01)
[2021-01-02 05:20] LABS: Platelet Estimate Normal (Normal)
[2021-01-02] MEDS: *HR* Metoprolol 5 MG/5 ML VIAL IVP SCH ×3 (06:23→16:14)
[2021-01-02] MEDS: Pantoprazole 40 MG VIAL IVP SCH ×2 (06:23→16:33)
[2021-01-02] MEDS: Vasopressin 40 UNIT in D5% in Water 100 ML IVC SCH ×2 (06:23→09:44)
[2021-01-02] MEDS: Midazolam HCl 50 MG/100 ML IV.SOLN IVC SCH (07:48)
[2021-01-02] MEDS: Chlorhexidine Rinse 15 ML MOUTHWASH MM SCH ×2 (08:18→20:36)
[2021-01-02] MEDS: Sennosides/Docusate Sodium TABLET PO SCH ×2 (08:19→20:36)
[2021-01-02] MEDS: Aspirin 81 MG TAB.CHEW GTUBE SCH (08:19)
[2021-01-02] MEDS: Multivit/Ca/Min/Fe/FA 1 TAB TABLET PO SCH (08:19)
[2021-01-02] MEDS: Cholecalciferol (D-3) 1,000 UNIT (25MCG) TABLET PO SCH (08:19)
[2021-01-02] MEDS: Loratadine 10 MG TABLET PO SCH (08:19)
[2021-01-02] MEDS: Lactobacillus 1 EACH CAP.SPRINK PO SCH ×2 (08:19→20:37)
[2021-01-02] MEDS: Dexmedetomidine HCl 400 MCG/100 ML MLS IVC SCH (08:20)
[2021-01-02] MEDS: Piperacillin/Tazobactam 3.375 GM in 0.9 % Sodium Chloride Mini Bag 100 ML IVPB SCH ×2 (09:31→21:09)
[2021-01-02 12:07] LABS: Activated Partial Thrombo Time 46.9 Seconds (26.0-36.0)
[2021-01-02 12:25] LABS: Heparin anti-factor XA UFH 0.46 IU/mL (0.30-0.70)
[2021-01-02] MEDS: Norepinephrine 16 MG in 0.9 % Sodium Chloride 500 ML IVC SCH (12:37)
[2021-01-02] MEDS ORDERED: Clinimix 5%-20% SOLUTION 2,000 ML with MVI, adult with vitamin K 10 ML, Sodium Acetat... IVC SCH (17:00)
[2021-01-02] MEDS: FentaNYL (PF) 2,500 MCG/50 ML IV.SOLN IVC SCH (20:16)
[2021-01-03] MEDS: PrismaSATE BGK 4/2.5 5,000 ML CRRT SCH ×6 (00:20→04:56)
[2021-01-03] MEDS: *HR* Metoprolol 5 MG/5 ML VIAL IVP SCH ×3 (00:23→11:23)
[2021-01-03] MEDS: Artificial Tears SOLN 15 ML BOTTLE BOTH EYES SCH ×4 (00:23→11:23)
[2021-01-03] MEDS: Ipratropium 1 PUFF INHALER IH SCH ×3 (03:02→11:30)
[2021-01-03 04:01] LABS: Basophils % 0.1 %; Eosinophils # 0.6 K/mcL (0.0-0.6); Eosinophils % 3.1 %; Hematocrit 30.4 % (37.5-50.1); Hemoglobin 9.4 g/dL (12.9-16.9); Immature Granulocytes % 2.6 % (0-4); Lymphocytes % 4.9 %; Mean Corpuscular HGB Conc 30.9 g/dL (31.6-35.5); Mean Corpuscular Hemoglobin 27.5 pg (28.0-33.3); Mean Corpuscular Volume 88.9 fL (83.0-100.0); Mean Platelet Volume 11.4 fL (9.4-12.4); Monocytes # 0.3 K/mcL (0.0-1.3); Monocytes % 1.4 %; Neutrophils # 17.8 K/mcL (1.6-8.9); Platelet Count 141 K/mcL (140-400); Red Blood Count 3.42 M/mcL (4.19-5.50); Red Cell Distribution Width 13.8 % (11.5-14.5); Segmented Neutrophils % 87.9 %; White Blood Count 20.3 K/mcL (4.3-11.1)
[2021-01-03 04:05] LABS: VBG Ionized Calcium 1.16 mmol/L (1.15-1.35)
[2021-01-03 04:19] LABS: Calcium 7.3 mg/dL (8.6-10.3); Magnesium 2.3 mg/dL (1.6-2.6); Phosphorous 2.2 mg/dL (2.7-4.5); Potassium 4.5 mEq/L (3.5-5.1)
[2021-01-03] MEDS: Heparin 25,000UNIT/250ML 1/2NS 25,000 UNIT/250 ML IV.SOLN IVC SCH (04:57)
[2021-01-03] MEDS: FentaNYL (PF) 2,500 MCG/50 ML IV.SOLN IVC SCH (04:58)
[2021-01-03] MEDS: Vasopressin 40 UNIT in D5% in Water 100 ML IVC SCH (04:59)
[2021-01-03 05:02] LABS: ABG Base Excess -1 mEq/L (-2 to 3); ABG HCO3 27 mEq/L (21-27); ABG Oxygen Saturation 80 % (95-98); ABG PCO2 60 mmHg (35-45); ABG PH 7.25 pH Units (7.32-7.45); ABG PO2 52 mmHg (85-104); ABG TCO2 28 mEq/L (20-26); Blood Gas VT 500 cc
[2021-01-03] MEDS: Pantoprazole 40 MG VIAL IVP SCH (05:58)
[2021-01-03] MEDS: Aspirin 81 MG TAB.CHEW GTUBE SCH (07:46)
[2021-01-03] MEDS: Chlorhexidine Rinse 15 ML MOUTHWASH MM SCH (07:46)
[2021-01-03] MEDS: Cholecalciferol (D-3) 1,000 UNIT (25MCG) TABLET PO SCH (07:46)
[2021-01-03] MEDS: Loratadine 10 MG TABLET PO SCH (07:46)
[2021-01-03] MEDS: Multivit/Ca/Min/Fe/FA 1 TAB TABLET PO SCH (07:46)
[2021-01-03] MEDS: Sennosides/Docusate Sodium TABLET PO SCH (07:46)
[2021-01-03] MEDS: Lactobacillus 1 EACH CAP.SPRINK PO SCH (07:46)
[2021-01-03] MEDS: Piperacillin/Tazobactam 3.375 GM in 0.9 % Sodium Chloride Mini Bag 100 ML IVPB SCH (10:00)
[2021-01-03] MEDS ORDERED: D5% in Water 1,000 ML IVC PRN (11:33)
[2021-01-03] MEDS ORDERED: Dextrose Gel 15 GM/37.5 ML TUBE PO PRN ×2 (11:33)
[2021-01-03] MEDS ORDERED: Insulin LISPRO 300 UNITS/3 ML VIAL SUBQ SCH (12:00)
[2021-01-03] MEDS ORDERED: *HR* Dextrose 50 % in Water (Syg) 50 ML SYRINGE IVP PRN (12:09)
[2021-01-03] MEDS: Midazolam HCl 50 MG/100 ML IV.SOLN IVC SCH ×2 (12:16)
[2021-01-03] MEDS: Norepinephrine 16 MG in 0.9 % Sodium Chloride 500 ML IVC SCH (12:16)
[2021-01-03 12:38] VITALS: TEMP 98.1
[2021-01-03] MEDS ORDERED: *HR* FentaNYL (PF) 100 MCG/2 ML VIAL IVP PRN (14:51)
[2021-01-03] MEDS ORDERED: Atropine 1% Opth Drops 100 DROP/5 ML BOTTLE SL PRN (14:51)
[2021-01-03] MEDS ORDERED: Haloperidol Lactate 5 MG/ML VIAL IVP PRN (14:52)
[2021-01-03] MEDS ORDERED: *HR* LORazepam 2 MG/ML VIAL IVP PRN (14:52)
[2021-01-03] MEDS ORDERED: Clinimix 5%-20% SOLUTION 2,000 ML, Parenteral Amino Acid 10% 0 ML with MVI, adult with... IVC SCH (17:00)
[2021-01-03 17:37] VITALS: BP 99/51; PULSE 94; O2SAT 88
== END 2021-01-03 21:20 | disposition expired | DRG 871 ==
LOC: 3NENU 13:24 → EMEROOARM 13:24 → SUATTDRO 16:50 → 3NENU 18:18 → SUATTDRO 12-22 16:27 → 2NENU 12-23 13:29 → ICNU 12-31 00:49
PROVIDERS: ADMIT Internal Medicine; ATTEND Pharmacist